=== PATIENT | female | born 1985 | race Caucasian/White ===

== ENCOUNTER 2016-07-07 09:48 | Emergency (ER) | payer MEDICAID ==
[2016-07-07] MEDS ORDERED: Sodium Chloride 0.9% 1,000 ML IV ONE (10:15)
[2016-07-07] MEDS ORDERED: HYDROmorphone 1 mg/mL 1mL Syr IVP STA ×3 (10:16→12:21)
[2016-07-07] MEDS ORDERED: HYDROmorphone 1 mg/mL 1mL Syr ONE ×3 (10:21→12:23)
--- NOTE | 2016-07-07 10:25 | ED Physician Chart ---
Chief Complaint/HPI - Patient Information Date Seen:: 07/07/16 Time Seen:: 10:10 Chief Complaint:: right flank pain History of Present Illness:: patient had onset of right flank pain 40 minutes [employer]. Nauseated but no vomiting or diarrhea. No dysuria. No history of similar pain. Allergies:: Allergies Allergy/AdvReac Type Severity Reaction Status Date / Time No Known Allergies Allergy Verified 07/07/16 10:10 Vitals:: Vital Signs - 8 hr 07/07/16 10:05 Temp 97.9 F HR 92 RR 16 BP 139/98 O2 Sat % 100 Historian:: Patient Review:: Nurse's Note Reviewed Review of Systems - Review of Systems General/Constitutional: No fever, No chills Skin: No skin lesions, No rash Head: No headache, No light-headedness Eyes: No loss of vision, No diplopia ENT: No earache, No sore throat Neck: No neck pain, No swelling Cardio Vascular: No chest pain, No palpitations Pulmonary: No SOB, No cough GI: Nausea G/U: No dysuria, No frequency, Other (right flank pain) Musculoskeletal: No bone or joint pain Endocrine: No polyuria, No polydipsia Psychiatric: No prior psych history, No depression, No anxiety Hematopoietic: No bruising, No lymphadenopathy Allergic/Immuno: No urticaria, No angioedema Neurological: No syncope, No headache, No dizziness Past Medical History - Past Medical History Past Medical History: No significant medical hx Family History: Heart disease, Diabetes Melitus, HTN Social History: Non Smoker, Alcohol, Other (drinks about 25 ounces beer every other day. ) Surgical History: Appendectomy, , other (tubal ligation; right wrist) Family Medical History - Family Member Father Living Status: Still Living Hx Family Hypertension: Yes Hx Family Diabetes: Yes Maternal Grandfather Hx Family Hypertension: Yes Hx Family Diabetes: Yes Paternal Grandfather Hx Family Cancer: No Hx Family Coronary Artery Disease: No Hx Family Congestive Heart Failure: No Hx Family Hypertension: Yes Hx Family Stroke: No Hx Family Diabetes: Yes Hx Family Seizures: No Hx Family Dementia: No Hx Family AIDS: No Hx Family HIV: No Hx Family COPD: No Hx Family Hepatitis: No Hx Family Psychiatric Problems: No Hx Family Tuberculosis: No Physical Exam - Physical Examination General/Constitutional: Well-developed, well-nourished, Alert Head: Atraumatic Eyes: Lids, conjuctiva normal, PERRL Skin: Nl inspection, No rash, No skin lesions, No ecchymosis, Well hydrated ENMT: External ears, nose nl, Lips, teeth, gums nl, Oropharynx nl Neck: No nuchal rigidity Respiratory: Nl effort/Exclusion, Clear to Auscultation, No Wheeze/Rhonchi/Rales Cardio Vascular: RRR GI: No organomegaly, No hernia, Normal BS's, Nondistended, No mass/bruits, No McBurney tenderness Other GI comments:: RUQ and right flank tenderness Extremities: No tenderness or effusion Neuro/Psych: Alert/oriented, Judgement/insight normal, Mood normal Other Misc comments:: right flank tenderness Labs/Radiology/EKG Results - Lab Results Results: Laboratory Results - last 24 hr 07/07/16 07/07/16 07/07/16 10:15 10:15 10:20 WBC 10.6 RBC 4.06 Hgb 12.9 Hct 37.1 MCV 91.3 MCH 31.8 H MCHC Differential 34.8 RDW 12.3 Plt Count 305 MPV 8.3 Neutrophils % 55.0 Lymphocytes % 33.1 Monocytes % 8.7 Eosinophils % 2.4 Basophils % 0.8 Sodium Potassium Chloride Carbon Dioxide Anion Gap BUN Creatinine Est GFR ( Amer) Est GFR (Non-Af Amer) BUN/Creatinine Ratio Glucose Calcium Total Bilirubin AST ALT Alkaline Phosphatase Total Protein Albumin Globulin Albumin/Globulin Ratio Lipase Urine Source [place] Urine Color YELLOW Urine Clarity SL. CLOUDY Urine pH 6.0 Ur Specific [place] 1.025 Urine Protein NEGATIVE Urine Glucose (UA) NEGATIVE Urine Ketones NEGATIVE Urine Blood SMALL H Urine Nitrate NEGATIVE Urine Bilirubin NEGATIVE Urine Urobilinogen 0.2 Ur Leukocyte Esterase NEGATIVE Urine RBC 0-3 Urine WBC 0-2 Ur Epithelial Cells RARE Urine Bacteria NONE SEEN Urine Test NEGATIVE 07/07/16 10:20 WBC RBC Hgb Hct MCV MCH MCHC Differential RDW Plt Count MPV Neutrophils % Lymphocytes % Monocytes % Eosinophils % Basophils % Sodium 136 Potassium 3.7 Chloride 105 Carbon Dioxide 23.5 Anion Gap 11.2 BUN 18 Creatinine 0.7 Est GFR ( Amer) > 60.0 Est GFR (Non-Af Amer) > 60.0 BUN/Creatinine Ratio 25.7 Glucose 107 H Calcium 9.7 Total Bilirubin 0.4 AST 21 ALT 22 Alkaline Phosphatase 82 Total Protein 7.3 Albumin 4.3 Globulin 3.0 Albumin/Globulin Ratio 1.4 Lipase 14 Urine Source Urine Color Urine Clarity Urine pH Ur Specific [place] Urine Protein Urine Glucose (UA) Urine Ketones Urine Blood Urine Nitrate Urine Bilirubin Urine Urobilinogen Ur Leukocyte Esterase Urine RBC Urine WBC Ur Epithelial Cells Urine Bacteria Urine Test Comments:: Laboratory Results - last 24 hr 07/07/16 07/07/16 07/07/16 10:15 10:15 10:20 WBC 10.6 RBC 4.06 Hgb 12.9 Hct 37.1 MCV 91.3 MCH 31.8 H MCHC Differential 34.8 RDW 12.3 Plt Count 305 MPV 8.3 Neutrophils % 55.0 Lymphocytes % 33.1 Monocytes % 8.7 Eosinophils % 2.4 Basophils % 0.8 Sodium Potassium Chloride Carbon Dioxide Anion Gap BUN Creatinine Est GFR ( Amer) Est GFR (Non-Af Amer) BUN/Creatinine Ratio Glucose Calcium Total Bilirubin AST ALT Alkaline Phosphatase Total Protein Albumin Globulin Albumin/Globulin Ratio Lipase Urine Source [place] Urine Color YELLOW Urine Clarity SL. CLOUDY Urine pH 6.0 Ur Specific [place] 1.025 Urine Protein NEGATIVE Urine Glucose (UA) NEGATIVE Urine Ketones NEGATIVE Urine Blood SMALL H Urine Nitrate NEGATIVE Urine Bilirubin NEGATIVE Urine Urobilinogen 0.2 Ur Leukocyte Esterase NEGATIVE Urine RBC 0-3 Urine WBC 0-2 Ur Epithelial Cells RARE Urine Bacteria NONE SEEN Urine Test NEGATIVE 07/07/16 10:20 WBC RBC Hgb Hct MCV MCH MCHC Differential RDW Plt Count MPV Neutrophils % Lymphocytes % Monocytes % Eosinophils % Basophils % Sodium 136 Potassium 3.7 Chloride 105 Carbon Dioxide 23.5 Anion Gap 11.2 BUN 18 Creatinine 0.7 Est GFR ( Amer) > 60.0 Est GFR (Non-Af Amer) > 60.0 BUN/Creatinine Ratio 25.7 Glucose 107 H Calcium 9.7 Total Bilirubin 0.4 AST 21 ALT 22 Alkaline Phosphatase 82 Total Protein 7.3 Albumin 4.3 Globulin 3.0 Albumin/Globulin Ratio 1.4 Lipase 14 Urine Source Urine Color Urine Clarity Urine pH Ur Specific [place] Urine Protein Urine Glucose (UA) Urine Ketones Urine Blood Urine Nitrate Urine Bilirubin Urine Urobilinogen Ur Leukocyte Esterase Urine RBC Urine WBC Ur Epithelial Cells Urine Bacteria Urine Test - Radiology Results Results: Abdominal ultrasound: hydronephrosis right kidney; CT scan: 3.5 mm calculus distal right ureter Assessment - Assessment General Assessment: at 1300 pain markedly improved. ED Septic Shock - . Is Septic Shock (SBP<90, OR Lactate>4 mmol\L) present?: No - <6hrs of presentation: Vital Signs: Vital Signs - 8 hr 07/07/16 10:05 Temp 97.9 F HR 92 RR 16 BP 139/98 O2 Sat % 100 Reassessment (Disposition) - Reassessment Reassessment Condition:: Improved - Diagnosis Diagnosis:: right ureteral calculus - Aftercare/Follow up Instructions Aftercare/Follow-Up Instructions:: Refer to Discharge Instructions Medication Prescribed:: zofran 4 mg ODT #10 Sig 1 Q 4 hr PRN; [place] 10/325 Sig 1/2-1 QID PRN; Ibuprofen 400 mg #30 Sig 1 TID with meals - Patient Disposition Discharge/Transfer:: Home Condition at Disposition:: Stable, Improved
[2016-07-07 10:32] LABS: % BASOPHILS 0.8 % (0.0-2.0); % EOSINOPHILS 2.4 % (0.0-5.0); % LYMPHOCYTES 33.1 % (20.0-50.0); % MONOCYTES 8.7 % (2.0-10.0); HEMATOCRIT 37.1 % (35.0-45.0); HEMOGLOBIN 12.9 gm/dL (11.7-15.5); MEAN CELL VOLUME 91.3 fl (81-100); MEAN CORPUSCULAR HEMOGLOBIN 31.8 pg (27.0-31.0); MEAN CORPUSCULAR HGB CONC 34.8 pg (28.0-36.0); MEAN PLATELET VOLUME 8.3 fl; NEUTROPHILE ABSOLUTE 5.8 Th/cmm (1.8-8.0); PLATELET COUNT 305 Th/cmm (150-400); RED BLOOD COUNT 4.06 Mil/cmm (3.80-5.10); RED CELL DISTRIBUTION WIDTH 12.3 % (11.5-20.0); WHITE BLOOD COUNT 10.6 Th/cmm (4.8-10.8)
[2016-07-07 10:37] LABS: URINE BILIRUBIN NEGATIVE (NEGATIVE); URINE BLOOD SMALL (NEGATIVE); URINE COLOR YELLOW; URINE GLUCOSE (UA) NEGATIVE (NEGATIVE); URINE KETONE NEGATIVE (NEGATIVE); URINE PROTEIN NEGATIVE (NEGATIVE); URINE UROBILINOGEN 0.2 E.U./dL (0.2 - 1.0)
[2016-07-07 10:39] LABS: URINE BACTERIA NONE SEEN /hpf (NONE SEEN); URINE EPITHELIAL CELLS RARE /lpf (FEW); URINE RBC 0-3 /hpf (0-5); URINE WBC 0-2 /hpf (0-5)
[2016-07-07 10:47] LABS: ALB/GLOB RATIO 1.4 (1.0-1.8); ALKALINE PHOSPHATASE 82 U/L (34-104); ANION GAP 11.2 (7.0-16.0); BILIRUBIN,TOTAL 0.4 mg/dL (0.3-1.0); BUN - UREA NITROGEN 18 mg/dL (7-25); BUN/CREATININE RATIO 25.7; CALCIUM SERUM 9.7 mg/dL (8.6-10.3); CARBON DIOXIDE 23.5 mEq/L (21.0-31.0); CHLORIDE 105 mEq/L (98-107); CREATININE - SERUM 0.7 mg/dL (0.6-1.2); GLUCOSE 107 mg/dL (70-105); LIPASE 14 U/L (11-82); POTASSIUM SERUM 3.7 mEq/L (3.5-5.1); SGOT 21 U/L (13-39); SGPT/ALT 22 U/L (7-52); SODIUM SERUM 136 mEq/L (136-145)
--- NOTE | 2016-07-07 13:06 | Diagnostic Imaging Report ---
CT scan abdomen and pelvis without intravenous contrast HISTORY: Pain Total DLP equals 819 CTDI equals 15.0 Axial sections were obtained from the xiphoid process down to the pubic symphysis. The liver exhibits a normal size and contour. No focal lesions. The spleen appears normal. No abnormality seen in the region of the pancreas. There is a severely dilated right renal pelvis with a moderate degree of generalized hydronephrosis. Mild dilatation of the right ureter. This is related to an approximate 2 mm calculus situated at the right ureterovesical junction. The left kidney appears normal. The remainder of the pelvis demonstrates preservation of normal fat planes. Hypodensity noted in the adnexal regions most likely related to ovarian follicular changes. No other abnormal masses. No abnormal fluid collections. No definite abnormality seen in the region of the appendix. IMPRESSION: 1. Severely dilated right renal pelvis with a moderate degree of right-sided hydronephrosis that appears related to an approximate 2 mm calculus situated at the right ureterovesical junction. 2. Bilateral adnexal hypodensities probably related to ovarian follicular changes.
--- NOTE | 2016-07-07 13:21 | Diagnostic Imaging Report ---
Abdominal ultrasound HISTORY: Pain The liver appears enlarged. There is an increase in hepatic parenchymal echogenicity. The finding may be associated with fatty infiltration and should be correlated with liver function tests. No focal lesions. No intraluminal abnormality seen within the gallbladder. The common bile duct cannot be well visualized. The pancreas is not well seen due to bowel gas. Suboptimal delineation of the right kidney that demonstrates what appears to be a dilated renal pelvis. Left kidney appears normal. No other definite retroperitoneal or intra-abdominal abnormalities. IMPRESSION: 1. Limited exam due to considerable bowel gas 2. Incomplete visualization the right kidney with suggestion of a dilated right renal pelvis. Etiology uncertain. A CT scan would provide additional assessment. 3. Hepatomegaly with changes that may reflect fatty infiltration. The findings should be correlated with liver function tests.
== END 2016-07-07 15:10 | disposition home or self-care (01) ==
LOC: ER 09:48
DX: N20.1 Calculus of ureter (principal)
CPT/HCPCS: 99285; 74176; 76700; 96374; 96375; 96376; 36415; 85025; 81001; 81025; 83690; 80053; J1885; J2405; J1170; J7030

== ENCOUNTER 2016-07-07 18:14 | Emergency (ER) | payer MEDICAID ==
--- NOTE | 2016-07-07 20:18 | ED Physician Chart ---
Chief Complaint/HPI - Patient Information Date Seen:: 07/07/16 Time Seen:: 20:05 Chief Complaint:: right flank pain History of Present Illness:: patient seen here earlier for right flank pain. CT scan showed about 2 mm calculus at right UV junction. Patient's pain recurred at [id number]. Allergies:: Allergies Allergy/AdvReac Type Severity Reaction Status Date / Time No Known Allergies Allergy Verified 07/07/16 10:10 Vitals:: Vital Signs - 8 hr 07/07/16 19:56 Temp 97.4 F HR 63 RR 19 BP 176/90 O2 Sat % 100 Historian:: Patient Review:: Nurse's Note Reviewed Review of Systems - Review of Systems General/Constitutional: No fever, No chills Skin: No skin lesions Head: No headache Eyes: No loss of vision ENT: No earache Neck: No neck pain Cardio Vascular: No chest pain Pulmonary: No SOB GI: Pain Musculoskeletal: No bone or joint pain, No back pain Endocrine: No polyuria Psychiatric: No prior psych history Hematopoietic: No bruising Allergic/Immuno: No angioedema Neurological: No syncope Past Medical History - Past Medical History Past Medical History: No significant medical hx Family History: Heart disease, Diabetes Melitus, HTN Social History: Alcohol Surgical History: Appendectomy, , other (right wrist) Psychiatricy History: None Family Medical History - Family Member Father Living Status: Still Living Hx Family Hypertension: Yes Hx Family Diabetes: Yes Maternal Grandfather Hx Family Hypertension: Yes Hx Family Diabetes: Yes Paternal Grandfather Hx Family Cancer: No Hx Family Coronary Artery Disease: No Hx Family Congestive Heart Failure: No Hx Family Hypertension: Yes Hx Family Stroke: No Hx Family Diabetes: Yes Hx Family Seizures: No Hx Family Dementia: No Hx Family AIDS: No Hx Family HIV: No Hx Family COPD: No Hx Family Hepatitis: No Hx Family Psychiatric Problems: No Hx Family Tuberculosis: No Physical Exam - Physical Examination General/Constitutional: Well-developed, well-nourished, Alert Head: Atraumatic Eyes: Lids, conjuctiva normal, PERRL Skin: Nl inspection, No rash ENMT: External ears, nose nl Neck: No nuchal rigidity Respiratory: Nl effort/Exclusion, Clear to Auscultation, No Wheeze/Rhonchi/Rales Cardio Vascular: RRR Other GI comments:: RUQ and right flank tenderness Neuro/Psych: No focal deficits Assessment - Assessment General Assessment: at 2130 stated pain is now bearable ED Septic Shock - . Is Septic Shock (SBP<90, OR Lactate>4 mmol\L) present?: No - <6hrs of presentation: Vital Signs: Vital Signs - 8 hr 07/07/16 19:56 Temp 97.4 F HR 63 RR 19 BP 176/90 O2 Sat % 100 Reassessment (Disposition) - Reassessment Reassessment Condition:: Improved - Diagnosis Diagnosis:: right ureteral calculus - Aftercare/Follow up Instructions Aftercare/Follow-Up Instructions:: Refer to Discharge Instructions - Patient Disposition Discharge/Transfer:: Home Condition at Disposition:: Stable, Improved
[2016-07-07] MEDS ORDERED: HYDROmorphone 2 mg/mL 1mL Vial IVP STA (20:23)
[2016-07-07] MEDS ORDERED: HYDROmorphone 2 mg/mL 1mL Vial ONE (20:25)
== END 2016-07-07 22:30 | disposition home or self-care (01) ==
LOC: ER 18:14
DX: N20.1 Calculus of ureter (principal); Z90.49 Acquired absence of other specified parts of digestive tract
CPT/HCPCS: 96374; J1170; Z7502

== ENCOUNTER 2016-08-04 03:13 | Emergency (ER) | payer MEDICAID ==
[2016-08-04 04:10] LABS: URINE COLOR AMBER
[2016-08-04 04:11] LABS: URINE BILIRUBIN NEGATIVE (NEGATIVE); URINE BLOOD LARGE (NEGATIVE); URINE GLUCOSE (UA) NEGATIVE (NEGATIVE); URINE KETONE TRACE mg/dL (NEGATIVE); URINE PROTEIN >300 mg/dL (NEGATIVE); URINE UROBILINOGEN 0.2 E.U./dL (0.2 - 1.0)
[2016-08-04 04:12] LABS: URINE BACTERIA FEW /hpf (NONE SEEN); URINE EPITHELIAL CELLS MODERATE /lpf (FEW); URINE RBC >100 /hpf (0-5)
--- NOTE | 2016-08-04 04:14 | ED Physician Chart ---
Chief Complaint/HPI - Patient Information Date Seen:: 08/04/16 Time Seen:: 04:08 Chief Complaint:: urinary trouble History of Present Illness:: This patient presents to the emergency room complaining of several days of urinary incontinence. She has not had a fever. She has had associated low back pain. Patient had emergency department encounters a few weeks ago and which a kidney stone was identified, and she underwent a subsequent lithotripsy. She had subsequent problems and required a ureteral stent to be placed. She has an upcoming appointment this week to see the urologist and have the stent removed. She says she has been on Tylenol 3 but denies other pain medications. She has not experienced weakness or numbness of the legs. Staff and I both note pt is extremely emotional and seems very touchy about her pain meds hx. Pt later adds that she has [employer]roco rx at home unused also and shes not here for pain med... Allergies:: Allergies Allergy/AdvReac Type Severity Reaction Status Date / Time No Known Allergies Allergy Verified 08/04/16 03:36 Vitals:: Vital Signs - 8 hr 08/04/16 03:20 Temp 98.1 F HR 105 RR 20 BP 127/80 O2 Sat % 99 Historian:: Patient Review of Systems - Review of Systems General/Constitutional: No fever, No chills, No weight loss, No weakness, No diaphoresis, No edema, No loss of appetite Skin: No skin lesions, No rash, No bruising Head: No headache, No light-headedness Eyes: No loss of vision, No pain, No diplopia ENT: No earache, No nasal drainage, No sore throat, No tinnitus Neck: No neck pain, No swelling, No thyromegaly, No stiffness, No mass noted Cardio Vascular: No chest pain, No palpitations, No PND, No orthopnea, No edema Pulmonary: No SOB, No cough, No sputum, No wheezing GI: No nausea, No vomiting, No diarrhea, No pain, No melena, No hematochezia, No constipation, No hematemesis G/U: No dysuria, Frequency, No hematuria, Other (incontinence) Musculoskeletal: No bone or joint pain, No back pain, No muscle pain Endocrine: No polyuria, No polydipsia Psychiatric: No prior psych history, No depression, No anxiety, No suicidal ideation Hematopoietic: No bruising, No lymphadenopathy Allergic/Immuno: No urticaria, No angioedema Neurological: No syncope, No focal symptoms, No weakness, No paresthesia, No headache, No seizure, No dizziness, No confusion, No vertigo Past Medical History - Past Medical History Past Medical History: Renal stone, Other (back pain) Social History: Non Smoker, Alcohol Medication: Reviewed Family Medical History - Family Member Father Living Status: Still Living Hx Family Hypertension: Yes Hx Family Diabetes: Yes Maternal Grandfather Hx Family Hypertension: Yes Hx Family Diabetes: Yes Paternal Grandfather History Unknown: Yes Ethnicity: Living Status: Still Living Hx Family Cancer: No Hx Family Coronary Artery Disease: No Hx Family Congestive Heart Failure: No Hx Family Hypertension: Yes Hx Family Stroke: No Hx Family Diabetes: Yes Hx Family Seizures: No Hx Family Dementia: No Hx Family AIDS: No Hx Family HIV: No Hx Family COPD: No Hx Family Hepatitis: No Hx Family Psychiatric Problems: No Hx Family Tuberculosis: No Physical Exam - Physical Examination General/Constitutional: Awake, Well-developed, well-nourished, Alert, No distress, GCS 15, Non-toxic appearing, Ambulatory Head: Atraumatic Eyes: Lids, conjuctiva normal, PERRL, EOMI Skin: Nl inspection, No rash, No skin lesions, No ecchymosis, Well hydrated, No lymphadenopathy ENMT: External ears, nose nl, Nasal exam nl, Lips, teeth, gums nl Neck: Nontender, Full ROM w/o pain, No JVD, No nuchal rigidity, No bruit, No mass, No stridor Respiratory: Nl effort/Exclusion, Clear to Auscultation, No Wheeze/Rhonchi/Rales Cardio Vascular: RRR, No murmur, gallop, rubs, NL S1 S2 GI: No tenderness/rebounding/guarding, No organomegaly, No hernia, Normal BS's, Nondistended, No mass/bruits, No McBurney tenderness : No CVA tenderness Extremities: No tenderness or effusion, Full ROM, normal strength in all extremities, No edema, Normal digits & nails Neuro/Psych: Alert/oriented, DTR's symmetric, Normal sensory exam, Normal motor strength, Mood normal, Normal gait, No focal deficits Other Neuro/Psych comments:: very labile...easily angered Misc: normal gait, Normal back, No paraspinal tenderness Labs/Radiology/EKG Results - Lab Results Results: Laboratory Tests 08/04/16 08/04/16 08/04/16 03:35 03:35 04:28 WBC 11.2 H RBC 3.99 Hgb 12.3 Hct 36.1 MCV 90.6 MCH 31.0 MCHC Differential 34.2 RDW 12.6 Plt Count 302 MPV 8.0 Neutrophils % 55.9 Lymphocytes % 34.8 Monocytes % 5.4 Eosinophils % 2.8 Basophils % 1.1 Sodium Potassium Chloride Carbon Dioxide Anion Gap BUN Creatinine Est GFR ( Amer) Est GFR (Non-Af Amer) BUN/Creatinine Ratio Glucose Calcium Total Bilirubin AST ALT Alkaline Phosphatase Total Protein Albumin Globulin Albumin/Globulin Ratio Urine Source [place] Urine Color [place] Urine Clarity CLOUDY H Urine pH 6.0 Ur Specific [place] 1.11210 H Urine Protein >300 H Urine Glucose (UA) NEGATIVE Urine Ketones TRACE Urine Blood LARGE H Urine Nitrate NEGATIVE Urine Bilirubin NEGATIVE Urine Urobilinogen 0.2 Ur Leukocyte Esterase TRACE H Urine RBC >100 H Urine WBC 6-10 H Ur Epithelial Cells MODERATE Urine Bacteria FEW Urine Test NEGATIVE 08/04/16 04:28 WBC RBC Hgb Hct MCV MCH MCHC Differential RDW Plt Count MPV Neutrophils % Lymphocytes % Monocytes % Eosinophils % Basophils % Sodium 136 Potassium 3.7 Chloride 105 Carbon Dioxide 25.8 Anion Gap 8.9 BUN 23 Creatinine 0.8 Est GFR ( Amer) > 60.0 Est GFR (Non-Af Amer) > 60.0 BUN/Creatinine Ratio 28.8 Glucose 109 H Calcium 9.5 Total Bilirubin 0.3 AST 23 ALT 25 Alkaline Phosphatase 71 Total Protein 8.0 Albumin 4.1 Globulin 3.9 Albumin/Globulin Ratio 1.1 Urine Source Urine Color Urine Clarity Urine pH Ur Specific [place] Urine Protein Urine Glucose (UA) Urine Ketones Urine Blood Urine Nitrate Urine Bilirubin Urine Urobilinogen Ur Leukocyte Esterase Urine RBC Urine WBC Ur Epithelial Cells Urine Bacteria Urine Test - Radiology Results Results: ct abd/p- rt ureteral stent protruding into bladder. mild prominence/stranding of rt ureter and kidney. possible infection vs stent malfxn ct l-spine no spinal compression ED Septic Shock - . Is Septic Shock (SBP<90, OR Lactate>4 mmol\L) present?: No - <6hrs of presentation: Vital Signs: Vital Signs - 8 hr 08/04/16 03:20 Temp 98.1 F HR 105 RR 20 BP 127/80 O2 Sat % 99 Reassessment (Disposition) - Reassessment Reassessment:: results reviewed w pt. advised pt since we do not have urology here to call her urologist when their office opens in few hrs and notify her dr of these results (stent failure). pt given a copy of her labs. we will start her on a abx for uti since there is some evidence for that. she may return if worse. (pts affect is bizarre..she is smiling broadly now..) Reassessment Condition:: Improved - Diagnosis Diagnosis:: 1 urerteral stent failure 2 uti 3 urinary incontinence - Aftercare/Follow up Instructions Aftercare/Follow-Up Instructions:: Counseled pt regarding lab results/diagnosis & need follow up - Patient Disposition Discharge/Transfer:: Home Condition at Disposition:: Improved
[2016-08-04] MEDS ORDERED: Sodium Chloride 0.9% 1,000 ML IV ONE (04:23)
[2016-08-04 04:37] LABS: % BASOPHILS 1.1 % (0.0-2.0); % EOSINOPHILS 2.8 % (0.0-5.0); % LYMPHOCYTES 34.8 % (20.0-50.0); % MONOCYTES 5.4 % (2.0-10.0); % NEUTROPHILS 55.9 % (40.0-80.0); HEMATOCRIT 36.1 % (35.0-45.0); HEMOGLOBIN 12.3 gm/dL (11.7-15.5); MEAN CELL VOLUME 90.6 fl (81-100); MEAN CORPUSCULAR HGB CONC 34.2 pg (28.0-36.0); NEUTROPHILE ABSOLUTE 6.3 Th/cmm (1.8-8.0); PLATELET COUNT 302 Th/cmm (150-400); RED BLOOD COUNT 3.99 Mil/cmm (3.80-5.10); RED CELL DISTRIBUTION WIDTH 12.6 % (11.5-20.0); WHITE BLOOD COUNT 11.2 Th/cmm (4.8-10.8)
[2016-08-04 05:04] LABS: ALB/GLOB RATIO 1.1 (1.0-1.8); ALKALINE PHOSPHATASE 71 U/L (34-104); ANION GAP 8.9 (7.0-16.0); BILIRUBIN,TOTAL 0.3 mg/dL (0.3-1.0); BUN - UREA NITROGEN 23 mg/dL (7-25); BUN/CREATININE RATIO 28.8; CALCIUM SERUM 9.5 mg/dL (8.6-10.3); CARBON DIOXIDE 25.8 mEq/L (21.0-31.0); CHLORIDE 105 mEq/L (98-107); CREATININE - SERUM 0.8 mg/dL (0.6-1.2); GLUCOSE 109 mg/dL (70-105); POTASSIUM SERUM 3.7 mEq/L (3.5-5.1); SGOT 23 U/L (13-39); SGPT/ALT 25 U/L (7-52); SODIUM SERUM 136 mEq/L (136-145)
[2016-08-04] MEDS ORDERED: Levofloxacin 500mg/100mL 500 MG/100 ML BAG IV ONE ×2 (06:29→06:35)
--- NOTE | 2016-08-04 15:35 | Diagnostic Imaging Report ---
CT scan abdomen and pelvis without intravenous contrast HISTORY: Pain The liver demonstrates a decrease in overall parenchymal density suggesting fatty infiltration. The finding should be correlated with liver function tests. No focal lesions. No abnormality seen in the region of the pancreas. The right kidney demonstrates a double pigtail ureteral stent. The proximal tip is noted in the region of the ureteropelvic junction. The distal tip is within the lumen of the urinary bladder. No significant hydronephrosis at this time. Minimal haziness is noted about the periphery of the proximal portion of the right ureter. The left kidney is unremarkable. The remainder of the pelvis demonstrates preservation of normal fat planes. No abnormal soft tissue masses or abnormal fluid collections. IMPRESSION: 1. Right-sided double pigtail ureteral stent. The proximal tip is in the region of the right ureteral pelvic junction and the distal tip is in the lumen of the urinary bladder. Minimal haziness noted about the proximal portion of the right ureter. Inflammatory change cannot be excluded. Clinical correlation is needed. 2. Findings consistent with hepatic fatty infiltration. The changes should be correlated with liver function tests.
--- NOTE | 2016-08-04 15:37 | Diagnostic Imaging Report ---
CT scan lumbar spine HISTORY: Pain Total DLP equals 1184 CTDI equals 47.2 Axial sections were obtained through the lumbar spine. Additional sagittal and coronal reformatted images are provided. Small spur formation noted about the endplates of L3, L4, L5. No other focal lesions. Alignment is normal. No obvious extradural abnormalities. Incidentally noted is a right ureteral stent. IMPRESSION: 1. No acute abnormalities 2. Mild degenerative changes 3. Right ureteral stent
== END 2016-08-04 07:53 | disposition home or self-care (01) ==
LOC: ER 03:13
DX: N39.0 Urinary tract infection, site not specified (principal); T83.112A Breakdown (mechanical) of indwelling ureteral stent, initial encounter; R32 Unspecified urinary incontinence
CPT/HCPCS: 99285; 96365; 96361; 96375; 72131; 74176; 36415; 85025; 87086; 81001; 81025; 80053; J1885; J1956; J7030

== ENCOUNTER 2016-09-18 11:30 | Emergency (ER) | payer MEDICAID ==
--- NOTE | 2016-09-18 12:03 | ED Physician Chart ---
Chief Complaint/HPI - Patient Information Date Seen:: 09/18/16 Time Seen:: 11:40 Chief Complaint:: Pressure burning sensation in L lower leg for one day. History of Present Illness:: Pt has h/o L tib fib/ankle fractures on 08/29/16, s/p fixation with pinning at [facility] 08/30/16. Pt has pending surgery to left lower leg/oziel at [facility] [place] tomorrow. Pt noticed pressure burning sensation in L lower leg with increased swelling for one day. No cough or dyspnea. No lightheadedness or palpitation. No CP or discomfort. Allergies:: Allergies Allergy/AdvReac Type Severity Reaction Status Date / Time No Known Allergies Allergy Verified 08/04/16 03:36 Vitals:: see Nurse Note. Historian:: Patient Family MD/PCP:: Dr. Gaxiola LMP:: about 4 y/a. Review:: Nurse's Note Reviewed Review of Systems - Review of Systems General/Constitutional: No fever, No chills, No weight loss, No weakness, No diaphoresis, No edema, No loss of appetite Skin: No skin lesions, No rash, No bruising Head: No headache, No light-headedness Eyes: No loss of vision, No pain, No diplopia ENT: No earache, No nasal drainage, No sore throat, No tinnitus Neck: No neck pain, No swelling, No thyromegaly, No stiffness, No mass noted Cardio Vascular: No chest pain, No palpitations, No PND, No orthopnea, No edema Pulmonary: No SOB, No cough, No sputum, No wheezing GI: No nausea, No vomiting, No diarrhea, No pain, No melena, No hematochezia, No constipation, No hematemesis G/U: No dysuria, No frequency, No hematuria Musculoskeletal: Other (L lower leg pressure burning sensation, see HPI.) Endocrine: No polyuria, No polydipsia Psychiatric: No prior psych history Hematopoietic: No bruising, No lymphadenopathy Allergic/Immuno: No urticaria, No angioedema Neurological: No syncope, No focal symptoms, No weakness, No paresthesia, No headache, No seizure, No dizziness, No confusion, No vertigo Past Medical History - Past Medical History Past Medical History: No significant medical hx Family History: Heart disease (father, PGF), Diabetes Melitus (Father, PGM, MGM. ), HTN (Parents. 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 R wrist surgery related to compartment syndrome in , carpal tunnel release in .) Psychiatricy History: None Medication: Reviewed Family Medical History - Family Member Father Living Status: Still Living Hx Family Hypertension: Yes Hx Family Diabetes: Yes Maternal Grandfather Hx Family Hypertension: Yes Hx Family Diabetes: Yes Paternal Grandfather History Unknown: Yes Ethnicity: Living Status: Still Living Hx Family Cancer: No Hx Family Coronary Artery Disease: No Hx Family Congestive Heart Failure: No Hx Family Hypertension: Yes Hx Family Stroke: No Hx Family Diabetes: Yes Hx Family Seizures: No Hx Family Dementia: No Hx Family AIDS: No Hx Family HIV: No Hx Family COPD: No Hx Family Hepatitis: No Hx Family Psychiatric Problems: No Hx Family Tuberculosis: No Physical Exam - Physical Examination General/Constitutional: Awake, Well-developed, well-nourished, Alert, No distress, GCS 15, Non-toxic appearing Other Gen/Cons comments:: Breathes comfortably, speaks clearly, and interacts normally. Head: Atraumatic Eyes: Lids, conjuctiva normal, PERRL, EOMI Skin: Nl inspection, No rash, No skin lesions, No ecchymosis, Well hydrated, No lymphadenopathy Neck: Nontender, Full ROM w/o pain, No JVD, No nuchal rigidity, No mass, No stridor Respiratory: Nl effort/Exclusion, Clear to Auscultation, No Wheeze/Rhonchi/Rales Cardio Vascular: RRR (with HR 96), No murmur, gallop, rubs, NL S1 S2 GI: No tenderness/rebounding/guarding, No organomegaly, No hernia, Normal BS's, Nondistended, No mass/bruits, No McBurney tenderness Other GI comments:: Abdomen is obese but soft. Other Extremities comments:: LLE: Orthopedic hardwares are in place in left lower leg. There is slight swelling noticed. No erythema. Good ROM of L knee. No detectable motor/sensory/ vascular deficit. Good distal pulse and capillary refill. Exam of LLE is limited because of orthopedic hardwares in place that limit access to L ankle and L lower leg. Neuro/Psych: Alert/oriented (oriented x 3), Mood normal, No focal deficits ED Septic Shock - . Is Septic Shock (SBP<90, OR Lactate>4 mmol\L) present?: No Reassessment (Disposition) - Reassessment Reassessment:: 1225 Pt remains stable, alert and oriented x 3. Pt states that she is pending to be hospitalized at [facility] [place] tomorrow for surgery to her L lower extremity tomorrow. Pt prefers not to have further evaluation and treatment here. Pt decides to sign out AMA and prefers to be driven by her to [facility] [place] now for further evaluation and management of her L lower extremity condition. Indications and related benefits for further in hospital evaluation/management and risks for leaving AMA have been well explained. Pt acknowledges understanding and still chooses to sign out AMA. Pt signed AMA form, witnessed by my nurse Lorin. Pt has been informed that if she changes her mind, she is welcomed to return anytime. Pt acknowledges understanding and appreciates our effort in caring for her. - Diagnosis Diagnosis:: h/o L tib/fib ankle fx by hx with increased pressure and swelling. Cannot r/o DVT vs other etiologies. Stable. - Patient Disposition Discharge/Transfer:: Against Medical Advice Time:: 12:27 Condition at Disposition:: Stable ED Discharge Plan - Patient Disposition Admit/Discharge/Transfer: AGAINST MEDICAL ADVICE Condition at Disposition: Unchanged
== END 2016-09-18 12:26 | disposition left against medical advice (07) ==
LOC: ER 11:30
DX: M79.605 Pain in left leg (principal); Z90.49 Acquired absence of other specified parts of digestive tract; Z98.51 Tubal ligation status
CPT/HCPCS: Z7502

== ENCOUNTER 2016-10-08 01:57 | Inpatient (IN) | payer MEDICAID ==
--- NOTE | 2016-10-08 02:34 | ED Physician Chart ---
Chief Complaint/HPI - Patient Information Date Seen:: 10/08/16 Time Seen:: 02:20 Chief Complaint:: spreading area of redness and bruising History of Present Illness:: Pt. was seen earlier at another ER and was started on Keflex for area of redness under panniculus. She was started on Keflex, but it has spread significantly during the day today. Allergies:: Allergies Allergy/AdvReac Type Severity Reaction Status Date / Time No Known Allergies Allergy Verified 08/04/16 03:36 Vitals:: Vital Signs - 8 hr 10/08/16 02:05 Temp 98.3 F HR 101 RR 17 BP 153/87 O2 Sat % 100 Historian:: Patient LMP:: 4 years Review of Systems - Review of Systems General/Constitutional: No fever Skin: Skin lesions Head: No headache Eyes: No loss of vision ENT: No earache, No sore throat Neck: No neck pain Pulmonary: No SOB, No cough GI: No nausea, No diarrhea Ice Cream Freezer: No vaginal discharge Musculoskeletal: No bone or joint pain Psychiatric: Depression Neurological: No syncope, No focal symptoms, No seizure Past Medical History - Past Medical History Past Medical History: Asthma/COPD, Thyroid disorder, Other (recent DVT, on Lovenox. Recent Tib-fib fx) Social History: Non Smoker, No Alcohol Surgical History: , other (orthopedic surg.) Psychiatricy History: Depression Medication Reviewed:: lovenox, zoloft, thyroid, keflix, gabapentin Family Medical History - Family Member Father History Unknown: Yes Living Status: Still Living Hx Family Hypertension: Yes Hx Family Diabetes: Yes Maternal Grandfather History Unknown: Yes Hx Family Hypertension: Yes Hx Family Diabetes: Yes Paternal Grandfather History Unknown: Yes Ethnicity: Living Status: Still Living Hx Family Cancer: No Hx Family Coronary Artery Disease: No Hx Family Congestive Heart Failure: No Hx Family Hypertension: Yes Hx Family Stroke: No Hx Family Diabetes: Yes Hx Family Seizures: No Hx Family Dementia: No Hx Family AIDS: No Hx Family HIV: No Hx Family COPD: No Hx Family Hepatitis: No Hx Family Psychiatric Problems: No Hx Family Tuberculosis: No Physical Exam - Physical Examination General/Constitutional: Awake, Well-developed, well-nourished, Alert, No distress, GCS 15, Non-toxic appearing, Ambulatory Head: Atraumatic Eyes: Lids, conjuctiva normal, PERRL, EOMI Skin: Nl inspection (spreading red calorous area under panniculus.) ENMT: External ears, nose nl Neck: Nontender, Full ROM w/o pain Respiratory: Nl effort/Exclusion, Clear to Auscultation Cardio Vascular: RRR, No murmur, gallop, rubs GI: Normal BS's Other Extremities comments:: L leg still in short leg splint Neuro/Psych: Alert/oriented, Normal motor strength, No focal deficits Labs/Radiology/EKG Results - Lab Results Results: Labs pending. ED Septic Shock - . Is Septic Shock (SBP<90, OR Lactate>4 mmol\L) present?: No - <6hrs of presentation: Vital Signs: Vital Signs - 8 hr 10/08/16 02:05 Temp 98.3 F HR 101 RR 17 BP 153/87 O2 Sat % 100 Reassessment (Disposition) - Diagnosis Diagnosis:: Dx: Acute area of cellulitis - Patient Disposition Discharge/Transfer:: Acute Care w/in this hosp Accepting Physician:: Dr. De La Garza Time Called:: 255 Time Responded:: 02:56 Discussion with Medical Provider:: Discussed with Dr. De La Garza: Admit. Vancomycin and Zosyn. Dr. De La Garza is giving orders to nurse. Admitting Medical Physician:: Dr. De La Garza Condition at Disposition:: Stable
[2016-10-08 03:08] LABS: % EOSINOPHILS 2.8 % (0.0-5.0); % LYMPHOCYTES 30.7 % (20.0-50.0); % MONOCYTES 6.2 % (2.0-10.0); % NEUTROPHILS 59.3 % (40.0-80.0); MEAN CELL VOLUME 90.5 fl (81-100); MEAN CORPUSCULAR HEMOGLOBIN 30.8 pg (27.0-31.0); MEAN CORPUSCULAR HGB CONC 34.1 pg (28.0-36.0); MEAN PLATELET VOLUME 7.7 fl; NEUTROPHILE ABSOLUTE 6.6 Th/cmm (1.8-8.0); RED CELL DISTRIBUTION WIDTH 12.7 % (11.5-20.0); WHITE BLOOD COUNT 11.1 Th/cmm (4.8-10.8)
[2016-10-08] MEDS ORDERED: Piperacillin Sodium/Tazobact 3.375 gm Vial IV ONE (03:08)
[2016-10-08 03:10] LABS: ALB/GLOB RATIO 1.1 (1.0-1.8); ALKALINE PHOSPHATASE 54 U/L (34-104); ANION GAP 7.5 (7.0-16.0); BILIRUBIN,TOTAL 0.3 mg/dL (0.3-1.0); BUN - UREA NITROGEN 10 mg/dL (7-25); BUN/CREATININE RATIO 16.7; CALCIUM SERUM 9.8 mg/dL (8.6-10.3); CARBON DIOXIDE 24.7 mEq/L (21.0-31.0); CHLORIDE 108 mEq/L (98-107); CREATININE - SERUM 0.6 mg/dL (0.6-1.2); GLUCOSE 97 mg/dL (70-105); POTASSIUM SERUM 3.2 mEq/L (3.5-5.1); SGOT 22 U/L (13-39); SGPT/ALT 24 U/L (7-52); SODIUM SERUM 137 mEq/L (136-145)
[2016-10-08 03:17] LABS: INR 1.06 (0.5-1.4)
[2016-10-08 03:18] LABS: HEMOGLOBIN 9.9 gm/dL (11.7-15.5)
[2016-10-08 03:20] LABS: PLATELET COUNT 448 Th/cmm (150-400)
[2016-10-08] MEDS ORDERED: Enoxaparin 100 mg/mL 1mL Syr SUBQ SCH (04:00)
[2016-10-08] MEDS: Sodium Chloride 0.9% 1,000 ML IV SCH (04:33)
[2016-10-08] MEDS: Levothyroxine 0.025 Mg Tab PO SCH (06:35)
[2016-10-08] MEDS: Enoxaparin 100 mg/mL 1mL Syr SUBQ SCH ×2 (08:22→21:34)
--- NOTE | 2016-10-08 15:33 | History & Physical ---
CHIEF COMPLAINT: Redness in the lower abdominal area. HISTORY OF PRESENT ILLNESS: This is a 31-year-old female from home to the Emergency Room with a chief complaint of redness on the abdominal area. Two days prior to arrival to the ER, the patient has been started on Keflex from another ER and was sent home, but apparently per patient, the redness did not subsided, otherwise, got worse. REVIEW OF SYSTEMS: GENERAL: Awake, alert, oriented, well developed, well nourished. HEAD: Denies any headache. EYES: Denies any eye pain. Denies blurring of vision. NECK: Denies any nuchal rigidity. THROAT: Denies any throat pain. CARDIOVASCULAR: Denies any palpitation or chest pain. PULMONARY: Denies any cough or shortness of breath. GASTROINTESTINAL: Denies any abdominal pain, denies any diarrhea or constipation. MUSCULOSKELETAL: Denies any muscle pain, but positive with joint pain due to recent history of fracture of the left tibia and fibula. PAST MEDICAL HISTORY: Includes COPD, hypothyroidism, currently on DVT due to recent fracture and the patient has been treated on Lovenox. SOCIAL HISTORY: Unremarkable. PAST SURGICAL HISTORY: and open reduction internal fixation of the left leg. PSYCHIATRIC HISTORY: Depression. FAMILY HISTORY: Unremarkable. PHYSICAL EXAMINATION: HEENT: Head is atraumatic, normocephalic. Eyes, bilateral conjunctivae are clear from injections. NECK: Supple. No JVD. CARDIOVASCULAR: S1 and S2 heard without murmur. CHEST: Clear to auscultation. GASTROINTESTINAL: Abdomen is soft and nontender without guarding. MUSCULOSKELETAL: No edema. No clubbing. ASSESSMENT: 1. Abdominal cellulitis. 2. Hypothyroidism. 3. Chronic obstructive pulmonary disease. PLAN: Keep the patient inpatient in the medical floor. We will continue IV antibiotics. We will follow up JOB# [id number] [facility]
--- NOTE | 2016-10-08 22:25 | Consultation ---
Consult Note - Consult Note Service Date: 10/08/16 Consult Note: PHYSICIAN Consultation Note: Date of Admission: 10/08/16 Purpose of Consultation: Chief Complaint: Patient HAL BAKER was admitted to location Medical/Surgical Unit I with CELLULITIS. History of Present Illness: 31 y with h/o Fracture of the left leg with splint, obesity, admitted to the hospital for abdominal wall erythema and cellulitis, failed on oral keflex. Id consult was called for antibiotic management. Currently, she is receiving vanco IV and zosyn. She remains afebrile and WBC count was 11,100. Past Medical History: Allergies Allergy/AdvReac Type Severity Reaction Status Date / Time No Known Allergies Allergy Verified 08/04/16 03:36 Vital Signs Temp 97.7 F 10/08/16 17:00 Pulse 93 10/08/16 17:00 Resp 18 10/08/16 17:00 BP 114/72 10/08/16 17:00 Pulse Ox 97 10/08/16 17:00 Intake & Output 10/08/16 10/08/16 10/09/16 06:59 18:59 06:59 Intake Total 360 850 Balance 360 850 Intake: Intake, IV Amount 250 Vancomycin HCl 1 gm In 250 Sodium Chloride 0.9% 250 ml @ 165 mls/hr IV Q8HR@ 0400,1200,2000 [facility] Rx#: [id number] Oral 360 600 Other: # Voids 1 2 Home Medication Medication Instructions Recorded Type Levothyroxine [Synthroid] 0.025 mg PO QDAC 08/04/16 History Sertraline [Zoloft] 50 mg PO DAILY 08/04/16 History APAP/Codeine 300 mg/30 mg [Tylenol 1 tab PO Q6HR PRN 10/08/16 History w/Codeine #3] Cephalexin [Keflex] 500 mg PO Q6HR 10/08/16 History Cyclobenzaprine [Flexeril] 10 mg PO TID 10/08/16 History Enoxaparin [Lovenox] 100 mg SUBQ Q12HR 10/08/16 History Gabapentin [Neurontin] 300 mg PO TID 10/08/16 History Hydroxyzine HCl 50 mg PO TID PRN 10/08/16 History Tramadol HCl [Ultram] 50 mg PO Q6HR 10/08/16 History Current Medications Generic Name Dose Route Start Last Admin Trade Name Freq PRN Reason Stop Dose Admin Acetaminophen/Codeine Phosphate 1 tab 10/08/16 03:13 Tylenol W/Codeine #3 PO 12/07/16 03:12 Q6HR PRN Pain (Mild) Cephalexin Monohydrate 500 mg 10/08/16 06:00 10/08/16 18:39 Keflex PO 12/07/16 05:59 500 mg Q6HR RIKKI Administration Cyclobenzaprine HCl 10 mg 10/08/16 03:13 Flexeril PO 12/07/16 08:59 TID PRN MUSCLE PAIN Enoxaparin Sodium 100 mg 10/08/16 09:00 10/08/16 21:34 Lovenox SUBQ 12/07/16 08:59 100 mg Q12HR RIKKI Administration Gabapentin 300 mg 10/08/16 09:00 10/08/16 21:35 Neurontin PO 12/07/16 08:59 Not Given TID RIKKI Sodium Chloride 1,000 mls @ 75 mls/hr 10/08/16 03:15 10/08/16 04:33 Nacl 0.9% IV 12/07/16 03:14 75 mls/hr .[id number] RIKKI Administration Vancomycin HCl 1 gm/ Sodium 250 mls @ 165 mls/hr 10/08/16 12:00 10/08/16 21: 00 Chloride IV 12/07/16 11:59 165 mls/hr Q8HR@0400,1200,2000 RIKKI Administration Piperacillin Sod/Tazobactam 50 mls @ 100 mls/hr 10/08/16 15:00 10/08/16 14:14 Sod 3.375 gm/ Sodium Chloride IV 12/07/16 14:59 100 mls/hr Q6H RIKKI Administration Levothyroxine Sodium 0.025 mg 10/08/16 07:30 10/08/16 06:35 Synthroid PO 12/07/16 07:29 0.025 mg QDAC RIKKI Administration Miscellaneous 1 ea 10/08/16 04:00 Vancomycin Iv Per Pharmacy 12/07/16 03:59 PRN RIKKI Miscellaneous 1 ea 10/08/16 03:48 Zosyn Iv Per Pharmacy 12/07/16 03:47 PRN PRN PROTOCOL Sertraline HCl 50 mg 10/08/16 09:00 10/08/16 08:21 Zoloft PO 12/07/16 08:59 50 mg DAILY RIKKI Administration Protocol Tramadol HCl 50 mg 10/08/16 03:13 10/08/16 14:15 Ultram PO 12/07/16 03:12 50 mg Q6HR PRN Administration Pain (Mild) Review of Systems: A 12 point ROS was reviewed with the pertinent positive and negatives noted in the HPI. Social History Smoking Status Never smoker Drug Use No Alcohol Use Yes: OCCASSIONALLY Family Medical History Family Medical History Start: 10/08/16 03: 34 Freq: ONCE Status: Active Document 10/08/16 04:59 NILSA (Rec: 10/08/16 04:59 NILSA JHONATHAN-MS3) Family Medical History Paternal Grandfather History Unknown Yes Physical Exam: General: Obese, No Acute Distress HEENT: EOMI Bilaterally, PERRLA Bilaterally, Head is normocephalic, atraumatic on inspection. Cardio: +S1/S2 Auscultated, RRR, no murmurs/rubs/gallops noted Respiratory: Clear to Auscultate Bilaterally Abdominal: Soft, Nondistended, Tenderness in lower abdomen with tender erythematous swelling. Genital/Urinary: Deferred Extremities: No Edema noted in the lower extremities Neurological: Cranial Nerves II-XII intact bilaterally, Gait Steady, No Focal Deficits noted. Assessment/Plan: 1. Cellulitis of lower abdomend. 2. Left leg fracture with splint. 3. Obesity. Recommendation, rylie lysypaige. continue vanco IV. If there is no response on current antibiotics, consider surgery consult. Thank you. Jonh Craft Devesh N., M.D. [id number]
[2016-10-09] MEDS ORDERED: Morphine Sulfate 2 mg/mL 1mL Syr IVP ONE (05:51)
[2016-10-09] MEDS: Levothyroxine 0.025 Mg Tab PO SCH (06:34)
--- NOTE | 2016-10-09 06:56 | Admit Criteria Form ---
Admit Criteria Forms - Admit Criteria Diagnosis: CELLULITIS Clinical Indications for Admission to Inpatient Care (Place 'X' for any and all applicable criteria): Admission is indicated for ANY ONE of the following(1)(2)(3)(4)(5): [ ]I. Limb-threatening infection [ ]II. High-risk comorbid condition as indicated by ANY ONE of the following: [ ]a) Uncontrolled diabetes (eg, HbA1c greater than 10% (0.1)) [ ]b) Cirrhosis [ ]c) Neutropenia [ ]d) Asplenia [ ]e) Immunosuppression [ ]f) Symptomatic heart failure [ ]III. Failure of outpatient therapy as indicated by ALL of the following: [ ]a) Progression or no improvement after adequate trial (minimum of 48 hours, with longer period for stable lower extremity infection) [ ]b) Adequate antibiotic regimen as indicated by use of ANY ONE of the following: [ ]i) First-generation cephalosporin (e.g., cephalexin) [ ]ii) Antistaphylococcal penicillin (e.g., dicloxacillin) [ ]iii) Penicillin-allergic patient regimen (clindamycin, extended-spectrum fluoroquinolone, or doxycycline) [ ]iv) Resistant organism (eg, methicillin-resistant Staphylococcus aureus) regimen (6) [ ]c) Outpatient intravenous therapy regimen is not appropriate due to ANY ONE of the following. (7)(8)(9)(10): [ ]i) It was tried and was not successful (eg, progression of infection). [ ]ii) It is not available or cannot be arranged in a clinically appropriate time frame (e.g., the next day). [ ]iii) Clinical presentation (eg, acuity of infection, rapidity of progression, confirmed or suspected bacteremia) is judged to require ALL of the following: [ ]1) Immediate initiation of intravenous therapy ( eg, cannot wait for next day) [ ]2) Intensity of patient monitoring and observation (eg, vital sign measurement, checks for infection progression) that cannot be provided at other than inpatient level of care [ ]IV. Mental status changes [ ]V. Bacteremia [ ]. Hemodynamic instability [ ]VII. Suspected necrotizing soft tissue infection (e.g., gas in tissue)(11)( 12) [ ]VIII. Orbital infection (13)(14) [ ]IX. Associated surgical procedure (e.g., abscess drainage, debridement) not amenable to outpatient, emergency department, or observation care [ ]X. Cutaneous gangrene [ ]XI. High fever (temperature greater than 39.5 degrees C (103.1 degrees F) (oral)) not responsive to outpatient, emergency department, or observation care therapy [X ]XIII. Inpatient admission required rather than observation care (Also use Cellulitis: Observation Care as appropriate) because of ANY ONE of the following : [ ]a) Periorbital or perineal infection that is severe or worsening [ ]b) Severe pain requiring acute inpatient management [ ]c) IV fluid to replace significant ongoing (e.g., for over 24 hours) losses (greater than 3L/m2 per day) [ ]d) Compartment syndrome monitoring (17) [ ]e) Strict or protective (eg, laminar flow) isolation [ ]f) Urgent debridement or skin grafting [ ]g) Bone or joint debridement [ ]h) Immediate inpatient surgery [X ]i) Other condition, treatment or monitoring requiring inpatient admission Extended stay beyond goal length of stay may be needed for (1)(18): [ ]a) Necrotizing soft tissue infection or fasciitis [ ]b) Gram-negative infection [ ]c) Methicillin-resistant Staphylococcal aureus (MRSA) infection [ ]d) Peripheral venous insufficiency with cellulitis [ ]e) Extensive edema [ ]f) Sepsis or continued Hemodynamic instability [ ]g) Continued high fever or mental status change [ ]h) Bacteremia [ ]i) Active serious comorbid conditions ( eg, heart failure, renal insufficiency) The original [facility] [employer] content created by [facility] [employer] has been revised. The portions of the content which have been revised are identified through the use of italic text or in bold, and [facility] has neither reviewed nor approved the modified material. All other unmodified content is copyright [facility] Please see references footnoted in the original [facility] edition 2016 Admit Criteria Met?: Yes
[2016-10-09 07:45] LABS: % BASOPHILS 0.6 % (0.0-2.0); % EOSINOPHILS 4.2 % (0.0-5.0); % LYMPHOCYTES 36.5 % (20.0-50.0); % NEUTROPHILS 50.7 % (40.0-80.0); HEMOGLOBIN 8.7 gm/dL (11.7-15.5); MEAN CELL VOLUME 90.2 fl (81-100); MEAN CORPUSCULAR HEMOGLOBIN 30.5 pg (27.0-31.0); MEAN CORPUSCULAR HGB CONC 33.9 pg (28.0-36.0); MEAN PLATELET VOLUME 7.8 fl; PLATELET COUNT 360 Th/cmm (150-400); RED BLOOD COUNT 2.85 Mil/cmm (3.80-5.10); RED CELL DISTRIBUTION WIDTH 12.8 % (11.5-20.0)
[2016-10-09 08:10] LABS: HEMATOCRIT 25.7 % (35.0-45.0); WHITE BLOOD COUNT 7.7 Th/cmm (4.8-10.8)
[2016-10-09] MEDS: Enoxaparin 100 mg/mL 1mL Syr SUBQ SCH ×2 (09:54→21:09)
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
[2016-10-09 11:09] LABS: T3 FREE 3.7 pg/mL (2.0-4.4); T4 FREE 1.32 ng/dL (0.82-1.77)
[2016-10-09] MEDS: Morphine Sulfate 2 mg/mL 1mL Syr IVP PRN ×2 (11:58→18:18)
[2016-10-09] MEDS ORDERED: Potassium Chloride 20 mEq ER Tab PO ONE (14:00)
[2016-10-09] MEDS: APAP/Codeine 300 mg/30 mg Tab PO PRN (14:43)
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
[2016-10-09] MEDS: Sodium Chloride 0.9% 1,000 ML IV SCH (18:18)
[2016-10-10] MEDS: Morphine Sulfate 2 mg/mL 1mL Syr IVP PRN ×3 (01:02→17:51)
[2016-10-10 07:14] LABS: % BASOPHILS 0.6 % (0.0-2.0); % EOSINOPHILS 2.9 % (0.0-5.0); % LYMPHOCYTES 27.6 % (20.0-50.0); % NEUTROPHILS 61.9 % (40.0-80.0); HEMATOCRIT 28.8 % (35.0-45.0); HEMOGLOBIN 9.7 gm/dL (11.7-15.5); MEAN CELL VOLUME 90.7 fl (81-100); MEAN CORPUSCULAR HEMOGLOBIN 30.6 pg (27.0-31.0); MEAN CORPUSCULAR HGB CONC 33.7 pg (28.0-36.0); MEAN PLATELET VOLUME 7.8 fl; NEUTROPHILE ABSOLUTE 5.5 Th/cmm (1.8-8.0); PLATELET COUNT 406 Th/cmm (150-400); RED BLOOD COUNT 3.18 Mil/cmm (3.80-5.10)
[2016-10-10] MEDS: Levothyroxine 0.025 Mg Tab PO SCH (07:34)
[2016-10-10 07:37] LABS: ANION GAP 10.6 (7.0-16.0); BUN - UREA NITROGEN 12 mg/dL (7-25); BUN/CREATININE RATIO 17.1; CALCIUM SERUM 9.4 mg/dL (8.6-10.3); CARBON DIOXIDE 28.6 mEq/L (21.0-31.0); CHLORIDE 105 mEq/L (98-107); CREATININE - SERUM 0.7 mg/dL (0.6-1.2); GLUCOSE 103 mg/dL (70-105); POTASSIUM SERUM 4.2 mEq/L (3.5-5.1); SODIUM SERUM 140 mEq/L (136-145)
[2016-10-10] MEDS: APAP/Codeine 300 mg/30 mg Tab PO PRN (09:54)
[2016-10-10] MEDS: Enoxaparin 100 mg/mL 1mL Syr SUBQ SCH ×2 (09:55→20:36)
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
[2016-10-10] MEDS: Sodium Chloride 0.9% 1,000 ML IV SCH (17:27)
[2016-10-11] MEDS: Morphine Sulfate 2 mg/mL 1mL Syr IVP PRN ×3 (01:35→15:51)
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
[2016-10-11 06:11] LABS: ANION GAP 7.9 (7.0-16.0); BUN - UREA NITROGEN 12 mg/dL (7-25); BUN/CREATININE RATIO 17.1; CALCIUM SERUM 9.5 mg/dL (8.6-10.3); CARBON DIOXIDE 27.3 mEq/L (21.0-31.0); CHLORIDE 106 mEq/L (98-107); CREATININE - SERUM 0.7 mg/dL (0.6-1.2); GLUCOSE 114 mg/dL (70-105); POTASSIUM SERUM 4.2 mEq/L (3.5-5.1); SODIUM SERUM 137 mEq/L (136-145)
[2016-10-11] MEDS: Levothyroxine 0.025 Mg Tab PO SCH (06:39)
[2016-10-11] MEDS: Enoxaparin 100 mg/mL 1mL Syr SUBQ SCH (10:32)
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
[2016-10-11] MEDS: APAP/Codeine 300 mg/30 mg Tab PO PRN ×2 (13:37→21:08)
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
[2016-10-11] MEDS: Sulfamethoxazole/TMP 800/160mg Tab PO SCH (16:22)
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
[2016-10-12] MEDS: Sodium Chloride 0.9% 1,000 ML IV SCH ×4 (03:30→14:38)
[2016-10-12] MEDS: Levothyroxine 0.025 Mg Tab PO SCH (06:31)
[2016-10-12] MEDS: Morphine Sulfate 2 mg/mL 1mL Syr IVP PRN (08:02)
[2016-10-12] MEDS: Sulfamethoxazole/TMP 800/160mg Tab PO SCH (09:30)
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
[2016-10-12] MEDS: APAP/Codeine 300 mg/30 mg Tab PO PRN (12:27)
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
--- NOTE | 2016-12-08 05:03 | Discharge Summary ---
DATE OF DISCHARGE: 10/12/2016 The patient had redness of the lower abdominal area and the patient apparently had cellulitis. The patient ____ history of COPD, hypothyroidism, history of DVT ____ recent fracture and the patient was on Lovenox. ASSESSMENT AND PLAN: Abdominal cellulitis, hypothyroidism, chronic obstructive pulmonary disease, all of them are treated and the patient improved and the patient was in stable condition on October 12. The patient was discharged to home. The patient was advised to follow up with her doctor in 1 week and continue her medications, see the reconciliation, the patient's condition on his discharge was stable, 2 g sodium 2000 ADA diet, activity as tolerated. [facility]# [id number]
== END 2016-10-12 17:00 | disposition home or self-care (01) | DRG 383 ==
LOC: ER 01:57 → MSI 02:55
PROVIDERS: ADMIT Internal Medicine; ATTEND Internal Medicine
DX: L03.311 Cellulitis of abdominal wall (principal); D68.59 Other primary thrombophilia; F32.9 Major depressive disorder, single episode, unspecified; J44.9 Chronic obstructive pulmonary disease, unspecified; E03.9 Hypothyroidism, unspecified; E66.9 Obesity, unspecified; J45.909 Unspecified asthma, uncomplicated; Z86.718 Personal history of other venous thrombosis and embolism; Z79.01 Long term (current) use of anticoagulants; Z87.81 Personal history of (healed) traumatic fracture; Z68.39 Body mass index [BMI] 39.0-39.9, adult; Z83.3 Family history of diabetes mellitus; Z82.49 Family history of ischemic heart disease and other diseases of the circulatory system; S82.92XD Unspecified fracture of left lower leg, subsequent encounter for closed fracture with routine healing
CPT/HCPCS: 36415-UA; 80048-TC; 80053-TC; 80202-TC; 81025-TC; 84439-90; 84443-TC; 84479-90; 85025-TC; 85610-TC; 85730-TC; J1650; J2270; J2543; J3370; J7030; Z7610

== ENCOUNTER 2016-10-15 15:40 | Inpatient (IN) | payer MEDICAID ==
[2016-10-15] MEDS ORDERED: Ampicillin Sodium/Sulbactam 3 GM in Sodium Chloride 0.9% 100 ML IV ONE (16:20)
[2016-10-15 16:44] LABS: % BASOPHILS 0.4 % (0.0-2.0); % EOSINOPHILS 0.5 % (0.0-5.0); % LYMPHOCYTES 17.2 % (20.0-50.0); % MONOCYTES 3.7 % (2.0-10.0); % NEUTROPHILS 78.2 % (40.0-80.0); MEAN CELL VOLUME 89.2 fl (81-100); MEAN CORPUSCULAR HEMOGLOBIN 30.1 pg (27.0-31.0); MEAN CORPUSCULAR HGB CONC 33.8 pg (28.0-36.0); MEAN PLATELET VOLUME 7.8 fl; NEUTROPHILE ABSOLUTE 11.4 Th/cmm (1.8-8.0); PLATELET COUNT 458 Th/cmm (150-400); RED BLOOD COUNT 3.98 Mil/cmm (3.80-5.10); RED CELL DISTRIBUTION WIDTH 12.9 % (11.5-20.0)
[2016-10-15 16:51] LABS: HEMATOCRIT 35.5 % (35.0-45.0); WHITE BLOOD COUNT 14.6 Th/cmm (4.8-10.8)
[2016-10-15] MEDS ORDERED: Morphine Sulfate 4 mg/mL 1mL Syr ONE (19:20)
[2016-10-15] MEDS ORDERED: Morphine Sulfate 4 mg/mL 1mL Syr IVP ONE (19:23)
[2016-10-15 20:59] VITALS: BP 133/77
[2016-10-15] MEDS ORDERED: APAP/Codeine 300 mg/30 mg Tab PO PRN (22:08)
[2016-10-15] MEDS: Morphine Sulfate 2 mg/mL 1mL Syr IVP PRN (22:47)
[2016-10-16] MEDS: Morphine Sulfate 2 mg/mL 1mL Syr IVP PRN ×5 (01:58→16:28)
[2016-10-16 05:31] LABS: % EOSINOPHILS 2.2 % (0.0-5.0); NEUTROPHILE ABSOLUTE 5.5 Th/cmm (1.8-8.0)
[2016-10-16 05:35] LABS: % BASOPHILS 0.9 % (0.0-2.0); % MONOCYTES 8.3 % (2.0-10.0); % NEUTROPHILS 55.6 % (40.0-80.0); MEAN CELL VOLUME 87.6 fl (81-100); MEAN CORPUSCULAR HEMOGLOBIN 30.6 pg (27.0-31.0); MEAN CORPUSCULAR HGB CONC 34.9 pg (28.0-36.0); MEAN PLATELET VOLUME 7.8 fl; RED BLOOD COUNT 3.24 Mil/cmm (3.80-5.10); RED CELL DISTRIBUTION WIDTH 13.3 % (11.5-20.0)
[2016-10-16 05:44] LABS: HEMATOCRIT 28.4 % (35.0-45.0); HEMOGLOBIN 9.9 gm/dL (11.7-15.5); WHITE BLOOD COUNT 9.9 Th/cmm (4.8-10.8)
[2016-10-16 05:45] LABS: PLATELET COUNT 366 Th/cmm (150-400)
[2016-10-16 06:04] LABS: ANION GAP 6.6 (7.0-16.0); BUN - UREA NITROGEN 16 mg/dL (7-25); CALCIUM SERUM 9.2 mg/dL (8.6-10.3); CARBON DIOXIDE 24.8 mEq/L (21.0-31.0); CHLORIDE 107 mEq/L (98-107); CREATININE - SERUM 0.5 mg/dL (0.6-1.2); GLUCOSE 107 mg/dL (70-105); POTASSIUM SERUM 3.4 mEq/L (3.5-5.1); SODIUM SERUM 135 mEq/L (136-145)
[2016-10-16] MEDS ORDERED: Levothyroxine 0.025 Mg Tab PO SCH (07:30)
[2016-10-16 08:39] LABS: % BASOPHILS 0.8 % (0.0-2.0); % EOSINOPHILS 2.2 % (0.0-5.0); % LYMPHOCYTES 26.9 % (20.0-50.0); % NEUTROPHILS 63.1 % (40.0-80.0); HEMATOCRIT 30.4 % (35.0-45.0); HEMOGLOBIN 10.5 gm/dL (11.7-15.5); MEAN CELL VOLUME 89.5 fl (81-100); MEAN CORPUSCULAR HEMOGLOBIN 30.7 pg (27.0-31.0); MEAN CORPUSCULAR HGB CONC 34.3 pg (28.0-36.0); MEAN PLATELET VOLUME 7.5 fl; NEUTROPHILE ABSOLUTE 5.6 Th/cmm (1.8-8.0); PLATELET COUNT 384 Th/cmm (150-400); RED CELL DISTRIBUTION WIDTH 12.8 % (11.5-20.0); WHITE BLOOD COUNT 8.9 Th/cmm (4.8-10.8)
[2016-10-16 08:47] LABS: INR 1.11 (0.5-1.4); PROTHROMBIN TIME (TEST) 11.6 SECONDS (9.5-11.5)
[2016-10-16 08:52] LABS: ALB/GLOB RATIO 1.2 (1.0-1.8); ALKALINE PHOSPHATASE 51 U/L (34-104); AMYLASE SERUM 41 U/L (29-103); ANION GAP 10.9 (7.0-16.0); BILIRUBIN,TOTAL 0.4 mg/dL (0.3-1.0); BUN - UREA NITROGEN 14 mg/dL (7-25); CALCIUM SERUM 9.3 mg/dL (8.6-10.3); CHLORIDE 103 mEq/L (98-107); CREATININE - SERUM 0.5 mg/dL (0.6-1.2); GLUCOSE 122 mg/dL (70-105); LIPASE 6 U/L (11-82); POTASSIUM SERUM 3.9 mEq/L (3.5-5.1); SGOT 18 U/L (13-39); SGPT/ALT 18 U/L (7-52); SODIUM SERUM 136 mEq/L (136-145)
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
--- NOTE | 2016-10-17 06:11 | Consultation ---
DATE OF CONSULTATION: 10/16/2016 INPATIENT GASTROINTESTINAL CONSULTATION REFERRING PHYSICIAN: Dr. De La Garza. REASON FOR CONSULTATION: Anemia. HISTORY OF PRESENT ILLNESS: A 31-year-old female, who apparently has anemia. Labs are not available, but staff is telling me that there was a drop in hemoglobin. The patient was interviewed. She denies having any abdominal pain. Denies nausea or vomiting, denies having diarrhea or constipation. She denies having any melena or hematochezia, hematemesis or coffee-ground emesis. PAST MEDICAL HISTORY: Use of anticoagulation for DVT. The patient also has hypothyroidism. PAST SURGICAL HISTORY: Appendectomy, tubal ligation, and . FAMILY HISTORY: Grandfather with colon cancer. SOCIAL HISTORY: She denies tobacco or IV drug usage, drinks alcohol. ALLERGIES: None. CURRENT MEDICATIONS: Tylenol, Flexeril, Neurontin, Atarax, Synthroid, morphine, Zofran, Xarelto, Zoloft, Ultram, vancomycin. REVIEW OF SYSTEMS: Ten-point review of system was performed and the pertinent positive was the anemia, all other systems were otherwise negative. PHYSICAL EXAMINATION: VITAL SIGNS: Temperature is 97.8, breathing 18, pulse of 104, blood pressure 107/60, satting 97%. GENERAL: In no apparent distress, overweight. Eyes are anicteric, normal conjunctivae. HEENT: Normocephalic, atraumatic. Moist mucous membranes. NECK: Soft, supple. CHEST: Clear, no effort. CARDIOVASCULAR: Regular rate and rhythm. ABDOMEN: Soft, nontender, nondistended. SKIN: Warm, dry. EXTREMITIES: Reveal no cyanosis. PSYCHOLOGIC: Alert and oriented x 3. LABORATORY DATA: Show white count 9.9, hemoglobin 9.9, platelets of 366. IMPRESSION: A 31-year-old female with anemia, unclear etiology; hemoglobin is 9.9, it is a normocytic type, no overt gastrointestinal bleeding. PLAN: 1. Follow CBC, provide blood transfusion as needed. 2. Check a test. 3. May need a CT of the abdomen and pelvis. 4. Check stool for OB. Thank you for allowing me to participate. Please call me if you have any questions. JOB# [id number]
--- NOTE | 2016-10-17 09:34 | Consultation ---
DATE OF CONSULTATION: 10/16/2016 REFERRING PHYSICIAN: Dr. Nevin De La Garza. REASON FOR CONSULTATION: Abdominal pain. HISTORY OF PRESENT ILLNESS: The patient is a 31-year-old female with a past medical history of fracture of left leg with a splint and obesity, admitted to the hospital for abdominal wall erythema and cellulitis, failed on oral Keflex. She was admitted to the hospital on 10/08/2016. She was started on vancomycin IV and Zosyn. She did well. However, she was discharged on 10/12/2016, in stable condition with no erythema. There was some firm mass in the lower abdomen. Surgical consultation was called and it was thought of complication of taking subq Lovenox. Lovenox was changed to Xarelto. She was discharged on the Bactrim and Augmentin. However, those antibiotics were not covered, so she could not take any medication. Now she comes back again with abdominal pain at the same place. On initial evaluation, the patient's WBC count was 14,600. She was started on vancomycin IV. On evaluation, there was no erythema. PAST MEDICAL HISTORY: Includes fracture of the left tibial and fibula, COPD, hypothyroidism and DVT. ALLERGIES: NKDA. MEDICATIONS: See medication reconciliation sheet. Antibiotic drake, the patient is on vancomycin. SOCIAL HISTORY: The patient needs alcohol on occasional basis. Denies any smoking or drug use. FAMILY HISTORY: Noncontributory. REVIEW OF SYSTEMS: As mentioned above. No fever and no chills. PHYSICAL EXAMINATION: CURRENT VITAL SIGNS: Shows temperature is 97.6, pulse 101, respirations 19 and blood pressure 115/61. GENERAL: The patient is comfortable lying in a bed, obese. HEENT: Head is normocephalic and atraumatic. Oral cavity moist, pink tongue. Eyes: PERRLA. There is no pallor and no icterus. Pupils PERRLA, EOMI. NECK: Supple. No JVD and no carotid bruit. Trachea in midline. CHEST: Bilateral breath sounds. No crackles or wheezing. HEART: S1 and S2 within normal limits. Regular rhythm. No murmur and no gallop. ABDOMEN: The patient has no erythema of the lower abdomen. There is some firm mass at the same site noticed before on previous admission. No discharge. No wound. EXTREMITIES: No cyanosis, no clubbing and no edema. NEUROLOGIC: Alert, awake and oriented x 3. LABORATORY DATA: Current lab shows WBC count 8900, hemoglobin 10.5, hematocrit 30.4, platelets are 384,000 and neutrophils 63%. Sodium 136, potassium 3.9, chloride 103, bicarbonate is 26, BUN is 14, creatinine 0.5 and glucose is 122. Blood culture 2 sets are negative. MRSA screen was negative on last admission. IMPRESSION: 1. The patient ____ versus ____ versus hematoma and abdominal wall. 2. Leukocytosis has improved. 3. Obesity. 4. Deep venous thrombosis of left leg. 5. Left leg fracture. 6. Hypothyroidism. 7. Obesity. RECOMMENDATIONS: We will continue vancomycin at this time. May check the ultrasound of the abdominal wall. However, the patient is going to the [facility] and further care as per the hospitalist at [facility]. Thank you, Dr. De La Garza for involving me in taking care of this patient. JOB# [id number]
--- NOTE | 2016-10-22 16:12 | Discharge Summary ---
DATE OF DISCHARGE: 10/16/2016 COURSE OF HOSPITAL TREATMENT: This patient was walking from home to the Emergency Room. Prior to this admission, the patient was already discharged 3 days ago due to cellulitis of the abdominal area and upon discharge, the patient was prescribed with oral antibiotics of Augmentin, but unfortunately the patient was unable to refill her medications due to cost of medicine and then the patient had episode of fever and increase of redness in her abdominal area. That is why the patient went back to the Emergency Room and the patient was diagnosed with cellulitis of abdominal area and admitted to medical/surgical unit and she was followed by ID specialist and received a series of IV antibiotics. Afterwards the patient was transferred to [facility] for continuity of care and also due to her insurance arrangement. JOB# [id number]
--- NOTE | 2016-11-26 10:21 | Discharge Summary ---
DATE OF DISCHARGE: 10/16/2016 The patient is a 31-year-old female, came to the Emergency Room of the [facility] for redness and swelling around abdominal area. She was diagnosed with abdominal cellulitis, hypothyroidism, COPD, and the patient was treated with IV antibiotics by Dr. David Borja of [place] doctor. The patient is improved. The patient is in stable condition, on 10/16/2016 discharged with antibiotics and the patient was sent to primary care doctor ____ and condition at the time of discharge was stable. Medications as noted. Her diet and activity, see the discharge instructions. JOB# [id number]
== END 2016-10-16 18:35 | disposition short-term general hospital (02) | DRG 720 ==
LOC: ER 15:40 → MSI 19:56
PROVIDERS: ADMIT Internal Medicine; ATTEND Internal Medicine
DX: A41.9 Sepsis, unspecified organism (principal); L03.311 Cellulitis of abdominal wall; I10 Essential (primary) hypertension; D64.9 Anemia, unspecified; E03.9 Hypothyroidism, unspecified; M19.90 Unspecified osteoarthritis, unspecified site; J45.909 Unspecified asthma, uncomplicated; J44.9 Chronic obstructive pulmonary disease, unspecified; F32.9 Major depressive disorder, single episode, unspecified; E66.9 Obesity, unspecified; Z68.39 Body mass index [BMI] 39.0-39.9, adult; Z82.49 Family history of ischemic heart disease and other diseases of the circulatory system; Z83.3 Family history of diabetes mellitus; Z82.3 Family history of stroke; Z86.718 Personal history of other venous thrombosis and embolism; Z79.01 Long term (current) use of anticoagulants; Z90.49 Acquired absence of other specified parts of digestive tract; Z98.51 Tubal ligation status
CPT/HCPCS: 36415-UA; 80048-TC; 80053-TC; 80329-TC; 82150-TC; 83605; 83690-TC; 85025-TC; 85610-TC; 96375; J0295; J2270; J2405; J3370; Z7610

== ENCOUNTER 2017-03-09 23:25 | Emergency (ER) | payer MEDICAID ==
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
== END 2017-03-10 00:55 | disposition home or self-care (01) ==
LOC: ER 23:25
DX: L03.116 Cellulitis of left lower limb (principal); E03.9 Hypothyroidism, unspecified; Z86.718 Personal history of other venous thrombosis and embolism
CPT/HCPCS: 73600-LT-TC; Z7502; Z7610

== ENCOUNTER 2018-08-22 12:00 | Emergency (ER) | payer MEDICAID ==
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
== END 2018-08-22 12:35 | disposition home or self-care (01) ==
LOC: ER 12:00
DX: S92.811A Other fracture of right foot, initial encounter for closed fracture (principal); S93.601A Unspecified sprain of right foot, initial encounter; S96.911A Strain of unspecified muscle and tendon at ankle and foot level, right foot, initial encounter; I10 Essential (primary) hypertension; M19.90 Unspecified osteoarthritis, unspecified site; E07.9 Disorder of thyroid, unspecified; V89.2XXA Person injured in unspecified motor-vehicle accident, traffic, initial encounter; Y93.89 Activity, other specified; Y92.89 Other specified places as the place of occurrence of the external cause; Y99.8 Other external cause status
CPT/HCPCS: Z7502